=== PATIENT | male | born 1960 | race African-American/Black ===

== ENCOUNTER 2018-05-02 10:59 | Inpatient (IN) | payer OTHER ==
[~2018-05-02] VITALS: Ht 177.8 cm; Wt 81.6 kg
[~2018-05-02 10:59] MED LIST: APRESOLINE 10MG10 MG; CARDURA1 MG; IBUPROFEN800 MG PO; METOPROLOL SUCC25 MG; ORPH100T PO; VASOTEC2.5 MG
[2018-05-02] MEDS ORDERED: ENALAPRIL MALEAT5 MG (11:24)
[2018-05-02] MEDS ORDERED: AMLODIPINE-OLM1 EAC1 (11:27)
== END 2018-05-04 13:25 | disposition home or self-care (01) | DRG 696 ==
LOC: ER 10:59 → MEDJ 22:30
PROC: BW21ZZZ Computerized Tomography (CT Scan) of Abdomen and Pelvis (ICD-10-PCS; principal; 2018-05-02)
PROC: BW21Y0Z Computerized Tomography (CT Scan) of Abdomen and Pelvis using Other Contrast, Unenhanced and Enhanced (ICD-10-PCS; 2018-05-03)
DX: R31.0 Gross hematuria (principal); I10 Essential (primary) hypertension

== ENCOUNTER 2018-05-10 12:35 | Inpatient (IN) | payer OTHER ==
[~2018-05-10] VITALS: Ht 177.8 cm; Wt 82.6 kg
[~2018-05-10 12:35] MED LIST changes: +AMLODIPINE-OLM1 EAC1; +ENALAPRIL MALEAT5 MG
[2018-05-10] MEDS ORDERED: DOXAZOSIN MESYLA4 MG (13:03)
== END 2018-05-13 14:19 | disposition home or self-care (01) | DRG 696 ==
LOC: ER 12:35 → SEC-K 20:37 → SURH 20:37
PROC: BW21ZZZ Computerized Tomography (CT Scan) of Abdomen and Pelvis (ICD-10-PCS; principal; 2018-05-11)
PROC: BW21Y0Z Computerized Tomography (CT Scan) of Abdomen and Pelvis using Other Contrast, Unenhanced and Enhanced (ICD-10-PCS; 2018-05-11)
DX: R31.0 Gross hematuria (principal); I10 Essential (primary) hypertension

== ENCOUNTER → 2019-12-07 | Outpatient (CLI) | payer OTHER ==
[~2019-12-07] MED LIST changes: +DOXAZOSIN MESYLA4 MG
== END | disposition home or self-care (01) ==
LOC: TOM 10:42
DX: R10.84 Generalized abdominal pain (principal)

== ENCOUNTER 2020-01-17 09:57 | Outpatient (CLI) | payer OTHER | END 2020-01-17 15:00 | disposition home or self-care (01) | LOC: LAB 09:57 → EKG 09:57 → LAB 15:00 | DX: K40.90 Unilateral inguinal hernia, without obstruction or gangrene, not specified as recurrent (principal); I10 Essential (primary) hypertension ==

== ENCOUNTER 2020-01-18 08:23 | Outpatient (CLI) | payer OTHER ==
[~2020-01-18 08:23] MED LIST changes: -AMLODIPINE-OLM1 EAC1; +AMLODIPINE-OLM1 EAC1 PO; -ENALAPRIL MALEAT5 MG; +ENALAPRIL MALEAT5 MG PO; -METOPROLOL SUCC25 MG; +METOPROLOL SUCC25 MG PO
[2020-01-22] MEDS ORDERED: ULTRAM50 MG PO (14:15)
== END 2020-01-18 08:33 | disposition home or self-care (01) ==
LOC: LAB 08:23
DX: K40.90 Unilateral inguinal hernia, without obstruction or gangrene, not specified as recurrent (principal); I10 Essential (primary) hypertension; Z01.812 Encounter for preprocedural laboratory examination

== ENCOUNTER 2020-01-24 05:26 | Day surgery (SDC) | payer OTHER ==
[~2020-01-24 05:26] MED LIST changes: +ULTRAM50 MG PO
== END 2020-01-24 14:39 | disposition home or self-care (01) ==
LOC: CIR.AMB 05:26 → EDSTATUS 10:45 → SURG 10:45 → CIR.AMB 14:39
DX: K40.90 Unilateral inguinal hernia, without obstruction or gangrene, not specified as recurrent (principal)

== ENCOUNTER 2021-04-14 09:55 | Outpatient (CLI) | payer OTHER | END 2021-04-14 10:08 | disposition home or self-care (01) | LOC: MRI 09:55 | PROVIDERS: ATTEND Anesthesiology | DX: M54.5 Low back pain (principal) | CPT/HCPCS: 72148 ==

== ENCOUNTER 2023-07-18 07:12 | Outpatient (CLI) | payer OTHER | END 2023-07-18 07:21 | disposition home or self-care (01) | LOC: SONOGRAMA 07:12 | PROVIDERS: ATTEND Internal Medicine | DX: R94.5 Abnormal results of liver function studies (principal) ==

== ENCOUNTER 2024-06-16 19:16 | Emergency (ER) | payer OTHER ==
[~2024-06-16] VITALS: Ht 180.3 cm; Wt 87.1 kg
[2024-06-16] MEDS ORDERED: ENALAPRIL MALEATE 10 MG TABLET PO ONE (21:15)
[2024-06-16] MEDS ORDERED: CLONIDINE HCL 0.1 MG TABLET PO ONE (21:17)
[2024-06-16] MEDS ORDERED: CLONIDINE HCL 0.1 MG TABLET PO STA (21:20)
[2024-06-16 21:26] LABS: HEMATOCRIT 45.8 % (39.0-48.0); MEAN CORPUSCULAR HEMOGLOBIN 30.7 pg (27.00-32.0); MEAN CORPUSCULAR HGB CONC 34.8 g/dl (32.0-36.0); PLATELET COUNT 246 K/uL (150-450); RED BLOOD COUNT 5.21 M/uL (4.00-6.00); RED CELL DISTRIBUTION WIDTH 13.7 % (11.5-14.5)
[2024-06-16 21:34] LABS: PH,URINE 5.5 (5.0-8.0); URINE APPEARANCE Clear; URINE BILIRRUBIN Negative (NEGATIVE); URINE BLOOD Negative; URINE COLOR Yellow; URINE GLUCOSE Negative (NEGATIVE); URINE LEUKOCYTE Negative; URINE NITRATE Negative; URINE PROTEIN 30 (NEGATIVE); URINE UROBILINOGEN 0.2 E.U./dl
[2024-06-16 21:38] LABS: URINE BACTERIA 18.8 uL (0.0-1933); URINE EPITHELIAL CELLS 2.3 uL (0.0-38.8); URINE WBC 4.7 uL (0.0-23.2)
[2024-06-16 21:49] LABS: ALBUMIN 3.8 gm/dL (3.4-5.0); BILIRUBIN TOTAL 0.48 mg/dL (0.3-1.2); CALCIUM 9.6 mg/dL (8.5-10.1); CREATININE SERUM 1.37 mg/dL (0.70-1.30); GFR 52.82; GLOBULINA 3.7 G/DL (2.4-3.5); POTASSIUM 3.85 mEq/L (3.5-5.1); TOTAL PROTEIN 7.5 gm/dL (6.4-8.2)
[2024-06-16 22:32] LABS: URINE RBC 1.8 uL (0.0-20.8)
== END 2024-06-17 01:08 | disposition home or self-care (01) ==
LOC: ER 19:16
PROVIDERS: Emergency Medicine
DX: R10.31 Right lower quadrant pain (principal); I10 Essential (primary) hypertension